=== PATIENT | male | born 1940 | race Caucasian/White ===

== ENCOUNTER 2022-03-26 11:10 | Observation (INO) | payer MEDICARE ==
[2022-03-26 12:19] LABS: #Eosinphils 0.3 10x3/uL (0.0-0.5); #Monocytes 0.9 10x3/uL (0.0-1.1); #Neutrophils 6.3 10x3/uL (1.5-8.4); %Basophils 0.2 % (0.0-2.0); %Eosinophils 2.6 % (0.0-6.0); %Monocytes 9.3 % (0.0-10.0); %Neutrophils 65.5 % (40.0-75.0); Hemoglobin 13.2 g/dL (13.5-17.5); Mean Corpuscular HGB CONC 36.8 g/dL (32.0-36.0); Mean Corpuscular Hemoglobin 33.4 pg (27.0-33.0); Mean Corpuscular Volume 90.9 fl (81.2-95.1); Mean Platelet Volume 9.5 fl (7.4-10.4); Platelet Count 200 10x3/uL (150-450); RBC Distribution Width 12.1 % (11.5-14.5); Red Blood Cell (RBC) Count 3.95 10x6/uL (4.32-5.72); White Blood Cell (WBC) Count 9.6 10x3/uL (3.5-10.5)
[2022-03-26 12:35] LABS: ALT (SGPT) 13 U/L (8-55); AST (SGOT) 26 U/L (5-34); Albumin 4.2 g/dL (3.4-4.8); Alkaline Phosphatase 82 U/L (40-110); Anion Gap 17 mmol/L (10-20); BUN (Urea Nitrogen) 48 mg/dL (8.4-25.7); Bilirubin, Total 0.9 mg/dL (0.2-1.2); Calc. Creatinine Clearance 0 mL/min (70-130); Calcium 9.1 mg/dL (7.8-10.44); Carbon Dioxide 24 mmol/L (23-31); Chloride 101 mmol/L (98-107); Estimated GFR 30; Globulin 2.7 g/dL (2.4-3.5); Glucose 111 mg/dL (83-110); Magnesium 1.6 mg/dL (1.6-2.6); Potassium 4.3 mmol/L (3.5-5.1); Protein, Total 6.9 g/dL (5.8-8.1); Sodium 138 mmol/L (136-145)
[2022-03-26 13:01] LABS: CKMB 2.6 ng/mL (0-6.6)
[2022-03-26] MEDS ORDERED: Acetaminophen 325 MG TAB PO PRN (13:22)
[2022-03-26] MEDS ORDERED: Ondansetron ODT 4 MG TAB PO PRN (13:22)
[2022-03-26] MEDS ORDERED: Ondansetron PF 4 MG/2 ML Vial IVP PRN (13:22)
[2022-03-26] MEDS ORDERED: Sodium Chloride 0.9% 1,000 ML IV SCH (13:30)
[2022-03-26 14:44] VITALS: BMI 27.6
[2022-03-26 15:51] LABS: Troponin I 0.031 ng/mL (< 0.028)
[2022-03-26] MEDS: Sodium Chloride 0.9% 1,000 ML IV SCH (16:52)
[2022-03-26 18:57] LABS: Troponin I 0.031 ng/mL (< 0.028)
[2022-03-26 19:09] LABS: SARS-CoV-2 NAA Rapid Test DETECTED (NotDetected)
[2022-03-26 20:44] LABS: Bilirubin Neg (Negative); Blood, Urine Negative (Negative); Clarity Clear (Clear); Glucose, Urine (Dipstick) Normal (Negative); Ketone, Urine Negative (Negative); Leukocyte Negative (Negative); Nitrite Negative (Negative); Protein, Urine (Dipstick) Negative (Neg-Trace); Specific Gravity, Urine 1.015 (1.005-1.030); Urobilinogen Normal mg/dL (Less than 2)
[2022-03-26 20:51] LABS: Bacteria/HPF Rare-Few HPF (None Seen); RBC/HPF None Seen HPF (0-3); Squamous Epithelial 0-3 HPF (0-3); WBC/HPF 0-3 HPF (0-3)
[2022-03-27] MEDS: Sodium Chloride 0.9% 1,000 ML IV SCH (04:09)
[2022-03-27 05:39] LABS: #Eosinphils 0.4 10x3/uL (0.0-0.5); #Monocytes 0.8 10x3/uL (0.0-1.1); #Neutrophils 4.6 10x3/uL (1.5-8.4); %Basophils 0.3 % (0.0-2.0); %Eosinophils 4.9 % (0.0-6.0); %Lymphocytes 23.6 % (18.0-47.0); %Monocytes 10.9 % (0.0-10.0); %Neutrophils 59.8 % (40.0-75.0); Hemoglobin 12.1 g/dL (13.5-17.5); Mean Corpuscular HGB CONC 35.7 g/dL (32.0-36.0); Mean Corpuscular Hemoglobin 32.7 pg (27.0-33.0); Mean Corpuscular Volume 91.6 fl (81.2-95.1); Mean Platelet Volume 9.5 fl (7.4-10.4); Platelet Count 163 10x3/uL (150-450); RBC Distribution Width 12.1 % (11.5-14.5); White Blood Cell (WBC) Count 7.6 10x3/uL (3.5-10.5)
[2022-03-27 05:50] LABS: Anion Gap 13 mmol/L (10-20); BUN (Urea Nitrogen) 31 mg/dL (8.4-25.7); Calc. Creatinine Clearance 51 mL/min (70-130); Calcium 8.4 mg/dL (7.8-10.44); Carbon Dioxide 25 mmol/L (23-31); Chloride 105 mmol/L (98-107); Estimated GFR 50; Glucose 104 mg/dL (83-110); Potassium 3.9 mmol/L (3.5-5.1); Sodium 139 mmol/L (136-145)
[2022-03-27] MEDS ORDERED: Lactated Ringer's 500 ML IV SCH ×2 (11:00→11:15)
[2022-03-27] MEDS ORDERED: Amoxicillin/Potassium Clav 875 MG TAB PO SCH (11:15)
[2022-03-27] MEDS: Amoxicillin/Potassium Clav 875 MG TAB PO SCH (20:35)
[2022-03-28 06:31] LABS: #Eosinphils 0.3 10x3/uL (0.0-0.5); #Monocytes 0.8 10x3/uL (0.0-1.1); #Neutrophils 4.4 10x3/uL (1.5-8.4); %Basophils 0.3 % (0.0-2.0); %Eosinophils 4.1 % (0.0-6.0); %Lymphocytes 20.4 % (18.0-47.0); %Neutrophils 62.8 % (40.0-75.0); Hemoglobin 12.5 g/dL (13.5-17.5); Mean Corpuscular Hemoglobin 32.8 pg (27.0-33.0); Mean Corpuscular Volume 91.1 fl (81.2-95.1); Mean Platelet Volume 9.7 fl (7.4-10.4); Platelet Count 174 10x3/uL (150-450); Red Blood Cell (RBC) Count 3.81 10x6/uL (4.32-5.72)
[2022-03-28 06:34] LABS: Anion Gap 14 mmol/L (10-20); BUN (Urea Nitrogen) 20 mg/dL (8.4-25.7); Calc. Creatinine Clearance 63 mL/min (70-130); Calcium 8.9 mg/dL (7.8-10.44); Carbon Dioxide 25 mmol/L (23-31); Chloride 107 mmol/L (98-107); Estimated GFR 66; Glucose 121 mg/dL (83-110); Potassium 3.6 mmol/L (3.5-5.1); Sodium 142 mmol/L (136-145)
[2022-03-28 08:26] VITALS: BP 128/91; TEMP 98
[2022-03-28] MEDS: Amoxicillin/Potassium Clav 875 MG TAB PO SCH (11:21)
== END 2022-03-28 12:15 | disposition home or self-care (01) ==
LOC: CSHERS 11:10 → CSHTELE 14:09 → INTOOBSV 14:09
PROVIDERS: ADMIT Family Medicine; ATTEND Hospitalist
DX: U07.1 COVID-19 (principal); R11.2 Nausea with vomiting, unspecified; I10 Essential (primary) hypertension; E78.5 Hyperlipidemia, unspecified; N17.9 Acute kidney failure, unspecified; R77.8 Other specified abnormalities of plasma proteins; I25.10 Atherosclerotic heart disease of native coronary artery without angina pectoris; E86.0 Dehydration; R68.81 Early satiety; R00.0 Tachycardia, unspecified; Z86.718 Personal history of other venous thrombosis and embolism; Z79.899 Other long term (current) drug therapy; Z79.82 Long term (current) use of aspirin; Z88.1 Allergy status to other antibiotic agents; Z88.8 Allergy status to other drugs, medicaments and biological substances; Z91.040 Latex allergy status; Z79.84 Long term (current) use of oral hypoglycemic drugs
CPT/HCPCS: 0241U; 70450; 71045; 80048 ×2; 80053; 81001; 82553; 83735; 83880; 84484 ×2; 85025 ×3; 93005 ×2; 94760 ×3; 99285; G0378 ×4; 36415; 93010; J7050; J7120

== ENCOUNTER 2022-08-27 08:08 | Outpatient (CLI) | payer MEDICARE | END 2022-08-27 08:09 | disposition home or self-care (01) | LOC: CSHCT 08:08 | PROVIDERS: ATTEND Internal Medicine Cardiovascular Disease | DX: Z01.810 Encounter for preprocedural cardiovascular examination (principal); I48.0 Paroxysmal atrial fibrillation | CPT/HCPCS: 71275 ==